=== PATIENT | female | born 1970 | race Caucasian/White ===

== ENCOUNTER 2016-10-28 14:10 | Emergency (ER) | payer SELFPAY ==
[~2016-10-28] VITALS: Ht 157.5 cm; Wt 74.8 kg
--- NOTE | 2016-10-28 15:15 | Diagnostic Imaging Report ---
Right knee INDICATION: Knee pain. Three views were obtained. There are no prior studies available for comparison. FINDINGS: There is no fracture, dislocation, or acute bony abnormality evident. The knee joint is fairly well maintained. The soft tissues are unremarkable. IMPRESSION: There is no evidence for an acute bony abnormality. Dictated by: Dictated on workstation # [id number]
[2016-10-28] MEDS ORDERED: TRAM-42 PO (15:46)
--- NOTE | 2016-10-28 15:46 | ED Lower Extremity ---
General Chief Complaint: Lower Extremity Stated Complaint: RIGHT KNEE PAIN Nursing Triage Note: AMBULATED TO ROOM 08 WITH COMPLAINTS OF RIGHT KNEE PAIN STARTING ON FRIDAY. DENIES INJURY. STATES SHE JUST TWISTED/TURNED AND IT BEGAN HURTING. Nursing Sepsis Screen: No Definite Risk Source: patient Exam Limitations: no limitations History of Present Illness Time seen by provider: 14:33 Initial Comments This 46-year-old woman presents to the emergency room with worsening right knee pain after twisting her knee 3 days ago. She denies blunt trauma. She has had prior injuries and has had to use a knee brace previously. She is still ambulatory. Allergies and Home Medications Allergies Coded Allergies: aspirin (Verified Allergy, Severe, SOA, RASH, 10/28/16) ibuprofen (Verified Allergy, Severe, SOA, RASH, 10/28/16) latex (Verified Allergy, Severe, SOA, RASH, 10/28/16) Home Medications Tramadol HCl 50 Mg Tablet #20 50 MG PO Q6H PRN PRN PAIN Prescribed by: LINDY VINCENT on 10/28/16 1546 Constitutional: no symptoms reported EENTM: no symptoms reported Respiratory: no symptoms reported Cardiovascular: no symptoms reported Gastrointestinal: no symptoms reported Genitourinary: no symptoms reported : No Musculoskeletal: see HPI Skin: no symptoms reported Psychiatric/Neurological: No Symptoms Reported Past Iiedtxe-Xqrxxa-Zgpsuz Hx Patient Social History Alcohol Use: Denies Use Recreational Drug Use: No Smoking Status: Current Everyday Smoker Recent Foreign Travel: No Contact w/Someone Who Travel: No Recent Infectious Disease Expo: No Recent Hopitalizations: No Physical Abuse Screen: No Sexual Abuse: No Surgeries HX Surgeries: Yes Surgeries: Tubal Ligation Respiratory Hx Respiratory Disorders: No Cardiovascular Hx Cardiac Disorders: No Neurological Hx Neurological Disorders: No Reproductive System Hx Reproductive Disorders: No Genitourinary Hx Genitourinary Disorders: No Gastrointestinal Hx Gastrointestinal Disorders: No Musculoskeletal Hx Musculoskeletal Disorders: No Endocrine Hx Endocrine Disorders: No HEENT HX ENT Disorders: No Cancer Hx Cancer: No Psychosocial Hx Psychiatric Problems: No Physical Exam Vital Signs Vital Sign - Last 12Hours 10/28/16 14:20 Temp 98.0 Pulse 100 Resp 18 B/P 114/82 Pulse Ox 98 Capillary Refill : Less Than 3 Seconds General Appearance: WD/WN no apparent distress HEENT: normal ENT inspection Hips: bilateral hip normal inspection, bilateral hip no evidence of injury Legs: bilateral leg normal inspection, bilateral leg no evidence of injury Knees: right knee normal inspection, right knee other (tenderness along the joint line particularly medially. Some pain with axial loading. Less pain with passive range of motion) Ankles: bilateral ankle normal inspection, bilateral ankle no evidence of injury Feet: bilateral foot normal inspection, bilateral foot no evidence of injury Neurologic/Tendon: normal sensation normal motor functions normal tendon functions Neurologic/Psychiatric: 3d technologist II-XII nml as tested no motor/sensory deficits alert normal mood/affect oriented x 3 Skin: normal color warm/dry Progress/Results/Core Measures Results/Orders My Orders Orders-LINDY ROSENBERG MD Knee, Right, 3 Views (10/28/16 14:49) Vital Signs/I&O Vital Sign - Last 12Hours 10/28/16 10/28/16 14:20 15:49 Temp 98.0 98.0 Pulse 100 100 Resp 18 18 B/P 114/82 Pulse Ox 98 98 Blood Pressure Mean: 93 Diagnostic Imaging Diagonstic Imaging: Xray Plain Films/CT/US/NM/MRI: knee Comments x-ray of the knee showed no acute bony abnormalities, significant arthritis, etc. Viewed by me and report reviewed. See report below: NAME: ESE TORRES [facility] REC#: [id number] PT STATUS: DEP ER : [id number] PHYSICIAN: LINDY ROSENBERG MD ADMIT DATE: 10/28/16/ER Signed Date of Exam: 10/28/16 KNEE, RIGHT, 3 VIEWS Right knee INDICATION: Knee pain. Three views were obtained. There are no prior studies available for comparison. FINDINGS: There is no fracture, dislocation, or acute bony abnormality evident. The knee joint is fairly well maintained. The soft tissues are unremarkable. IMPRESSION: There is no evidence for an acute bony abnormality. Dictated by: Dictated on workstation # [id number] Dict: 10/28/16 1511 Trans: [id number]/28/[id number] Interpreted by: LORRAINE WATSON MD Electronically signed by:LORRAINE WATSON MD 10/28/16 2100 Departure Impression Impression: Primary Impression: Right knee injury Qualified Code: S89.91XA - Unspecified injury of right lower leg, initial encounter Disposition: HOME, SELF-CARE Condition: Stable Departure-Patient Inst. Decision time for Depature: 15:44 Referrals: [facility] NO,LOCAL PHYSICIAN (PCP) Primary Care Physician Patient Instructions: Knee Sprain (DC) Add. Discharge Instructions: Rest, icing in 20 minute intervals, and elevation can be used to help treat your pain. You may use Tylenol up to 1000 mg every 6 hours as needed for pain. Fill your tramadol (Ultram) prescription when able. Follow up with the primary care provider of your choice or the [facility]. Obtain financial assistance paperwork from the checkout desk. Return to the ER if symptoms worsen. All discharge instructions reviewed with patient and/or family. Voiced understanding. Scripts Tramadol HCl (Ultram)50 Mg Raroxx26 Mg PO Q6H PRN PAIN #20 TAB Prov:LINDY ROSENBERG MD 10/28/16 LINDY ROSENBERG MD Oct 28, 2016 15:46
[2016-10-28 15:49] VITALS: BP 114/82
== END 2016-10-28 15:49 | disposition home or self-care (01) ==
LOC: ER 14:14
DX: M79.661 Pain in right lower leg (principal); F17.210 Nicotine dependence, cigarettes, uncomplicated
CPT/HCPCS: 73562